=== PATIENT | female | born 1965 | race Caucasian/White ===

== ENCOUNTER → 2020-10-28 | Outpatient (CLI) | payer OTHER ==
--- NOTE | 2020-10-28 16:22 | RAD ---
EXAMINATION: XR KNEE _3 VIEWS_LT CLINICAL HISTORY: Left knee pain TECHNIQUE: XR KNEE _3 VIEWS_LT Number of Images/Views: 3 COMPARISON: None FINDINGS: Mild medial compartment narrowing. Tricompartmental small marginal osteophytes. No acute fracture. No significant joint effusion. IMPRESSION: Mild degenerative changes left knee medial compartment. Electronically signed by: Martinez Burrell DO (10/28/2020 4:19 PM) [id number]
== END ==
LOC: DXRAD 15:43
PROVIDERS: ATTEND Orthopaedic Surgery
DX: M17.12 Unilateral primary osteoarthritis, left knee (principal); M25.762 Osteophyte, left knee
CPT/HCPCS: 73562